=== PATIENT | female | born 1985 | race Caucasian/White ===

== ENCOUNTER 2020-08-06 12:19 | Emergency (ER) | payer OTHER ==
[~2020-08-06] VITALS: Ht 157.5 cm; Wt 71.6 kg
--- NOTE | 2020-08-06 12:47 | REP ---
INDICATION: injury COMPARISON: None. TECHNIQUE: Three views right shoulder. FINDINGS: No acute fracture is seen. There is elevation of the distal clavicle with respect to the acromion consistent with separation of the acromioclavicular joint and underlying ligamentous injury. No other radiographic abnormalities are seen. IMPRESSION: AC joint separation. <Electronically signed by Arcenio London > 08/06/20 [id number]
[2020-08-06] MEDS ORDERED: IBUPROFEN 800 MG TAB PO ONE (15:10)
[2020-08-06 15:26] VITALS: BP 127/73
== END 2020-08-06 15:27 | disposition home or self-care (01) ==
LOC: M ED 12:19
DX: S43.51XA Sprain of right acromioclavicular joint, initial encounter (principal); S43.101A Unspecified dislocation of right acromioclavicular joint, initial encounter; W01.0XXA Fall on same level from slipping, tripping and stumbling without subsequent striking against object, initial encounter; Y92.89 Other specified places as the place of occurrence of the external cause; Y93.89 Activity, other specified; Y99.8 Other external cause status; F17.200 Nicotine dependence, unspecified, uncomplicated; Z98.890 Other specified postprocedural states